=== PATIENT | male | born 1965 | race Caucasian/White ===

== ENCOUNTER 2016-05-27 09:23 | Inpatient (IN) | payer OTHER ==
[2016-05-27 09:35] VITALS: BMI 21.5
--- NOTE | 2016-05-27 12:31 | HP ---
COWS - Scale Resting Pulse: 0= [place] 80 or Below Sweatin= Chills/Flushing Restless Observation: 3= Extraneous Movement Pupil Size: 2= Moderately Dilated Bone or Joint Aches: 4=Acute Joint/Muscle Pain Runny Nose/ Eye Tearin= Runny Nose/Eyes GI Upset > 30mins: 1= Stomach Cramp Tremor Observation: 1= Tremor [place], Not Seen Yawning Observation: 1= 1-2x During Session Anxiety or Irritability: 2=Irritable/Anxious Goose Flesh Skin: 0=Smooth Skin COWS Score: 17 Admission ROS BHS - HPI Chief Complaint: DETOX TX FOR HEROIN DEPENDENCE SEEKING DETOX TX Allergies/Adverse Reactions: Allergies Allergy/AdvReac Type Severity Reaction Status Date / Time No Known Allergies Allergy Verified 05/27/16 09:37 History of Present Illness: 50 Y/O H/MALE WITH A HX OF HEROIN AND COCAINE DEPENDENCE SEEKING DETOX TX. Exam Limitations: No Limitations - Ebola screening Have you traveled outside of the country in the last 21 days: No Have you had contact with anyone from an Ebola affected area: No Have you been sick,other than usual withdrawal symptoms: No Do you have a fever: No - Review of Systems Constitutional: Chills, Night Sweats EENT: reports: Blurred Vision (WEARS GLASSES), Tearing, Nose Congestion, Dental Problems (BILATERAL DENTURES) Respiratory: reports: No Symptoms reported Cardiac: reports: Lightheadedness GI: reports: Constipated, Diarrhea, Nausea, Poor Fluid Intake, Vomiting, Abdominal cramping : reports: No Symptoms Reported Musculoskeletal: reports: Back Pain, Joint Pain, Muscle Pain Integumentary: reports: Bruising (IVD USE SITES ON BOTH ELBOWS) Neuro: reports: No Symptoms reported Endocrine: reports: No Symptoms Reported Hematology: reports: No Symptoms Reported Psychiatric: reports: Orientated x3, Anxious, Depressed Other Systems: Reviewed and Negative Patient History - Patient Medical History Hx Anemia: No Hx Asthma: No Hx Chronic Obstructive Pulmonary Disease (COPD): No Hx Cancer: No Hx Cardiac Disorders: No Hx Congestive Heart Failure: No Hx Hypertension: No Hx Hypercholesterolemia: No Hx Pacemaker: No HX Cerebrovascular Accident: No Hx Seizures: No Hx Dementia: No Hx Diabetes: No Hx Gastrointestinal Disorders: No Hx Liver Disease: No Hx Genitourinary Disorders: No Hx Sexually Transmitted Disorders: No Hx Renal Disease (ESRD): No Hx Thyroid Disease: No Hx Human Immunodeficiency Virus (HIV): Yes (SINCE 1996; ON MEDS) Hx Hepatitis C: Yes (TREATED WITH INTERFERON AND TWO OTHER MEDS.) Hx Depression: Yes (NO CURRENT MEDS) Hx Suicide Attempt: No (DENIES) Hx Bipolar Disorder: No Hx Schizophrenia: No - Patient Surgical History Past Surgical History: Yes Hx Neurologic Surgery: No Hx Cataract Extraction: No Hx Cardiac Surgery: No Hx Lung Surgery: No Hx Breast Surgery: No Hx Breast Biopsy: No Hx Abdominal Surgery: No Hx Appendectomy: No Hx Cholecystectomy: No Hx Genitourinary Surgery: No Hx Section: No Hx Orthopedic Surgery: Yes (S/P ARTHROSCOPIC SURGERY OF RIGHT KNEE) Anesthesia Reaction: No - PPD History Previous Implant?: Yes Documented Results: Negative w/proof Implanted On Prior [facility] Admission?: Yes Date: 03/25/16 Results: 0 mm PPD to be Administered?: No - Reproductive History Patient is a Female of Child Bearing Age (11 -55 yrs old): No (MALE) - Smoking Cessation Smoking history: Current every day smoker Have you smoked in the past 12 months: Yes Aproximately how many cigarettes per day: 5 Cigars Per Day: 0 Hx Chewing Tobacco Use: No Initiated information on smoking cessation: Yes 'Breaking Loose' booklet given: 05/27/16 - Substance & Tx. History Hx Alcohol Use: Yes (OCCASIOALLY) Hx Substance Use: Yes (HEROIN/COCAINE ) Substance Use Type: Cocaine, Heroin Hx Substance Use Treatment: Yes ([facility] [place]) - Substances Abused Heroin Route: Injection Frequency: Daily Amount used: 3 bags Age of first use: 37 Date of Last Use: 05/26/16 Cocaine Route: Inhalation Frequency: 1-3 times last 30 days Amount used: $30 Age of first use: 20 Date of Last Use: 05/25/16 Family Disease History - Family Disease History Family History: Denies Admission Physical Exam BHS - Vital Signs Vital Signs: Vital Signs - 24 hr 05/27/16 09:33 Temperature 97.3 F L Pulse Rate 70 Respiratory 16 Rate Blood Pressure 147/83 - Physical General Appearance: Yes: Moderate Distress, Irritable, Anxious HEENTM: Yes: EOMI, Normocephalic, JOHNNY, Pharynx Normal, Nasal Congestion, Rhinorrhea Respiratory: Yes: Chest Non-Tender, Lungs Clear, Normal Breath Sounds, No Respiratory Distress Neck: Yes: Supple, Trachea in good position Breast: Yes: Breast Exam Deferred Cardiology: Yes: Regular Rhythm, Regular Rate, S1, S2 Abdominal: Yes: Normal Bowel Sounds, Non Tender, Flat, Soft Genitourinary: Yes: Other (N/C) Back: Yes: Within Normal Limits Musculoskeletal: Yes: full range of Motion, Gait Steady Extremities: Yes: Normal Range of Motion, Non-Tender 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, Fully Oriented, Alert Integumentary: Yes: Dry, Warm, Track [place] (BOTH ELBOWS--NO SWELLING OR DRAINAGE ) Lymphatic: Yes: Within Normal Limits - Diagnostic (1) Anxiety and depression Current Visit: Yes Status: Chronic (2) HIV (human immunodeficiency virus infection) Current Visit: Yes Status: Chronic (3) Low back pain Current Visit: Yes Status: Chronic Qualifiers: Chronicity: chronic (4) Opioid dependence with withdrawal Current Visit: Yes Status: Acute (5) History of hepatitis C Current Visit: Yes Status: Suspected (6) Cocaine abuse Current Visit: Yes Status: Acute Cleared for Admission [facility] - Detox or Rehab [facility] Level of Care: Medically Managed Detox Regimen/Protocol: Methadone [facility] Breath Alcohol Content Breath Alcohol Content: 0 Urine Drug Screen - Results Drug Screen Negative: No Urine Drug Screen Results: CA-Cocaine, OPI-Opiates
[2016-05-27] MEDS ORDERED: P-EPHED 60MG/TRIPROLIDI 2.5MG TABLET PO PRN (12:49)
[2016-05-27] MEDS ORDERED: LOPERAMIDE HCL 2 MG CAPSULE PO PRN (12:49)
[2016-05-27] MEDS ORDERED: ACETAMINOPHEN 325 MG TABLET (FP) PO PRN (12:49)
[2016-05-27] MEDS ORDERED: MAGNESIUM HYDROX 2400MG/30ML ORAL SUSPENSION 30 ML CUP PO PRN (12:49)
[2016-05-27] MEDS ORDERED: MAG HYDROX/AL HYDROX/SIMETH 30 ML UNIT-DOSE CUP PO PRN (12:49)
[2016-05-27] MEDS ORDERED: MENTHOL/PHENOL 1 EACH UD MM PRN (12:49)
[2016-05-27] MEDS ORDERED: NICOTINE POLACRILEX 2 MG GUM BUC PRN (12:49)
[2016-05-27] MEDS ORDERED: MAGNESIUM CITRATE 300 ML BOTTLE PO PRN (12:49)
[2016-05-27] MEDS ORDERED: guaiFENesin/D-METHORPHAN HB 10 ML UNIT-DOSE CUPS PO PRN (12:49)
[2016-05-27] MEDS ORDERED: IBUPROFEN 400 MG TABLET (FP) PO PRN (12:49)
[2016-05-27] MEDS ORDERED: diphenhydrAMINE HCL 50 MG CAPSULE PO PRN (12:49)
[2016-05-27] MEDS ORDERED: hydrOXYzine PAMOATE 25 MG CAPSULE (FP) PO PRN (12:49)
[2016-05-27] MEDS ORDERED: METHADONE HCL 10 MG TABLET (FOR DETOX USE ONLY) PO ONE ×2 (13:05→23:00)
[2016-05-27] MEDS: diazePAM 5 MG TABLET PO PRN ×3 (13:22→22:36)
[2016-05-27] MEDS: NICOTINE 14 MG/24 HOURS TOPICAL PATCH TD SCH (13:23)
--- NOTE | 2016-05-27 15:04 | EKG ---
Test Reason : Blood Pressure : / mmHG Vent. Rate : 065 BPM Atrial Rate : 065 BPM P-R Int : 150 ms QRS Dur : 092 ms QT Int : 398 ms P-R-T Axes : 066 041 043 degrees QTc Int : 413 ms NORMAL SINUS RHYTHM POSSIBLE LEFT ATRIAL ENLARGEMENT BORDERLINE ECG NO PREVIOUS ECGS AVAILABLE Confirmed by TOBI AGUILERA, KARLOS ([id number]) on 05/27/2016 3:04:11 PM Referred By: Confirmed By:KARLOS BRITTON MD
[2016-05-27 16:57] LABS: URINE APPEARANCE CLEAR; URINE BILIRUBIN NEGATIVE (NEGATIVE); URINE BLOOD NEGATIVE (NEGATIVE); URINE COLOR YELLOW; URINE GLUCOSE (UA) NEGATIVE (NEGATIVE); URINE KETONE NEGATIVE (NEGATIVE); URINE LEUK ESTERASE NEGATIVE (NEGATIVE); URINE NITRITE NEGATIVE (NEGATIVE); URINE PROTEIN NEGATIVE (NEGATIVE); URINE UROBILINOGEN NEGATIVE E.U./dl (0.2-1.0)
[2016-05-27] MEDS: THIAMINE HCL 100 MG TABLET (FP) PO SCH (22:35)
[2016-05-28] MEDS: diazePAM 5 MG TABLET PO PRN ×3 (05:45→22:26)
[2016-05-28 09:37] LABS: MCH 32.1 pg (25.7-33.7); MCHC 33.3 g/dl (32.0-35.9); MEAN CELL VOLUME 96.4 fl (80-96); MEAN PLT VOLUME 10.4 fl (7.5-11.1); PLATELET COUNT 145 K/MM3 (134-434); RDW 12.9 % (11.9-15.9); WHITE BLOOD COUNT 4.2 K/mm3 (4.0-10.0)
[2016-05-28] MEDS ORDERED: METHADONE HCL 10 MG TABLET (FOR DETOX USE ONLY) PO ONE (10:00)
[2016-05-28] MEDS: NICOTINE 14 MG/24 HOURS TOPICAL PATCH TD SCH (10:42)
[2016-05-28] MEDS: PRENATAL VITAMINS W/ FOLIC ACID TABLET (FP) PO SCH (10:42)
[2016-05-28 10:50] LABS: ALBUMIN 4.3 g/dl (3.4-5.0); ALK PHOS 124 U/L (45-117); ANION GAP 10 (8-16); BILIRUBIN,TOTAL 0.4 mg/dL (0.2-1.0); CO2 26 mmol/L (21-32); CREATININE 1.2 mg/dL (0.7-1.3); GLUCOSE,RANDOM 93 mg/dL (74-106); SGOT/AST 15 U/L (15-37); SGPT/ALT 28 U/L (12-78); TOT PROT 7.7 g/dl (6.4-8.2)
--- NOTE | 2016-05-28 11:05 | PN ---
BHS COWS - Scale Resting Pulse: 0= [place] 80 or Below Sweatin=Flushed/Facial Moisture Restless Observation: 1= Difficult to Sit Still Pupil Size: 0= Normal to Room Light Bone or Joint Aches: 1= Mild Discomfort Runny Nose/ Eye Tearin= Runny Nose/Eyes GI Upset > 30mins: 2= Nausea/Diarrhea Tremor Observation of Outstretched Hands: 2= Slight Tremor Visible Yawning Observation: 1= 1-2x During Session Anxiety or Irritability: 2=Irritable/Anxious Goose Flesh Skin: 0=Smooth Skin COWS Score: 13 BHS Progress Note (SOAP) Subjective: Anxiety,tremors,sweating,interrupted sleep,restless Objective: 05/28/16 11:03 Vital Signs - 8 hr 05/28/16 05/28/16 05/28/16 03:30 06:32 10:36 Temperature 96.1 F L 95.4 F L Pulse Rate 62 68 Respiratory 18 18 18 Rate Blood Pressure 131/87 116/74 Laboratory Last Values WBC 4.2 K/mm3 (4.0-10.0) 05/28/16 07:47 RBC 4.36 M/mm3 (4.00-5.60) 05/28/16 07:47 Hgb 14.0 GM/dL (11.7-16.9) 05/28/16 07:47 Hct 42.1 % (35.4-49) 05/28/16 07:47 MCV 96.4 fl (80-96) H 05/28/16 07:47 MCHC 33.3 g/dl (32.0-35.9) 05/28/16 07:47 RDW 12.9 % (11.9-15.9) 05/28/16 07:47 Plt Count 145 K/MM3 (134-434) 05/28/16 07:47 MPV 10.4 fl (7.5-11.1) 05/28/16 07:47 Sodium 143 mmol/L (136-145) 05/28/16 07:47 Potassium 4.1 mmol/L (3.5-5.1) 05/28/16 07:47 Chloride 107 mmol/L (98-107) 05/28/16 07:47 Carbon Dioxide 26 mmol/L (21-32) 05/28/16 07:47 Anion Gap 10 (8-16) 05/28/16 07:47 BUN 20 mg/dL (7-18) H D 05/28/16 07:47 Creatinine 1.2 mg/dL (0.7-1.3) 05/28/16 07:47 Creat Clearance w eGFR > 60 (>60) 05/28/16 07:47 Random Glucose 93 mg/dL (74-106) D 05/28/16 07:47 Calcium 9.0 mg/dL (8.5-10.1) 05/28/16 07:47 Total Bilirubin 0.4 mg/dL (0.2-1.0) D 05/28/16 07:47 AST 15 U/L (15-37) D 05/28/16 07:47 ALT 28 U/L (12-78) D 05/28/16 07:47 Alkaline Phosphatase 124 U/L (45-117) H 05/28/16 07:47 Total Protein 7.7 g/dl (6.4-8.2) 05/28/16 07:47 Albumin 4.3 g/dl (3.4-5.0) 05/28/16 07:47 Urine Color Yellow 05/27/16 13:00 Urine Appearance Clear 05/27/16 13:00 Urine pH 5.0 (5.0-8.0) D 05/27/16 13:00 Ur Specific [place] 1.023 (1.001-1.035) 05/27/16 13:00 Urine Protein Negative (NEGATIVE) 05/27/16 13:00 Urine Glucose (UA) Negative (NEGATIVE) 05/27/16 13:00 Urine Ketones Negative (NEGATIVE) 05/27/16 13:00 Urine Blood Negative (NEGATIVE) 05/27/16 13:00 Urine Nitrite Negative (NEGATIVE) 05/27/16 13:00 Urine Bilirubin Negative (NEGATIVE) 05/27/16 13:00 Urine Urobilinogen Negative E.U./dl (0.2-1.0) 05/27/16 13:00 Ur Leukocyte Esterase Negative (NEGATIVE) 05/27/16 13:00 RPR Titer Nonreactive (NONREACTIVE) 05/28/16 07:47 Hepatitis C Antibody >11.0 s/co ratio (0.0-0.9) H 05/27/16 12:00 labs noted,pt. was previously treated for Hep C Assessment: 05/28/16 11:05 Withdrawal sx. Plan: Continue detox
--- NOTE | 2016-05-28 13:42 | CONSULT ---
[facility] Psychiatric Consult - Data Date of interview: 05/28/16 Admission source: [facility] Identifying data: Readmission to [facility] for this 50 y/o male seeking detox treatment on for heroin and cocaine dependence.Patient is ,a father of six,domiciled,unemployed and supported on Public Assistance. Substance Abuse History: - Smoking Cessation. Smoking history: Current every day smoker. Have you smoked in the past 12 months: Yes. Aproximately how many cigarettes per day: 5. Cigars Per Day: 0. Hx Chewing Tobacco Use: No. Initiated information on smoking cessation: Yes. 'Breaking Loose' booklet given : 05/27/16. - Substance & Tx. History. Hx Alcohol Use: Yes (OCCASIOALLY). Hx Substance Use: Yes (HEROIN/COCAINE ). Substance Use Type: Cocaine, Heroin. Hx Substance Use Treatment: Yes ([facility]). - Substances Abused. Heroin. Route: Injection. Frequency: Daily. Amount used: 3 bags. Age of first use: 37. Date of Last Use: 05/26/16. Cocaine. Route: Inhalation. Frequency: 1- 3 times last 30 days. Amount used: $30. Age of first use: 20. Date of Last Use: 05/25/16. Confirmed by the patient in this interview. Medical History: HIV infection since 1996 (on ART drugs),low back pain, hepatitis C and a history of arhroscopic surgery on right knee. Psychiatric History: Patient denies history of psychiatric hospitalizations. Physical/Sexual Abuse/Trauma History: Patient denies. Additional Comment: Urine Drug Screen Results: CA-Cocaine, OPI-Opiates.Noted. Mental Status Exam - Mental Status Exam Alert and Oriented to: Time, Place, Person Cognitive Function: Good Patient Appearance: Well Groomed Mood: Hopeful, Euthymic Affect: Appropriate, Normal Range Patient Behavior: Appropriate, Cooperative Speech Pattern: Clear, Appropriate Voice Loudness: Normal Thought Process: Goal Oriented Thought Disorder: Not Present Hallucinations: Denies Suicidal Ideation: Denies Homicidal Ideation: Denies Insight/Judgement: Poor Sleep: Poorly, Difficulty falling asleep Appetite: Good Muscle strength/Tone: Normal Gait/Station: Normal Psychiatric Findings - Problem List ([place] 1, 2,3) (1) Opioid dependence with withdrawal Current Visit: Yes Status: Acute (2) Cocaine dependence Current Visit: Yes Status: Acute (3) Nicotine dependence Current Visit: Yes Status: Acute (4) Drug-induced mood disorder Current Visit: Yes Status: Suspected (5) HIV (human immunodeficiency virus infection) Current Visit: Yes Status: Chronic (6) Low back pain Current Visit: Yes Status: Chronic Qualifiers: Chronicity: chronic (7) History of hepatitis C Current Visit: Yes Status: Chronic - Initial Treatment Plan Initial Treatment Plan: Psychoeducation.Detoxification.Zolpidem 5 mg po hs prn.Patient made aware of the risk of parasomnias.He agrees with this plan of care.Observation.
[2016-05-28] MEDS: ZOLPIDEM TARTRATE 5 MG TABLET PO PRN (22:26)
[2016-05-28] MEDS: THIAMINE HCL 100 MG TABLET (FP) PO SCH (22:26)
[2016-05-29] MEDS ORDERED: METHADONE HCL 5 MG TABLET (FOR DETOX USE ONLY) PO ONE (10:00)
[2016-05-29] MEDS: diazePAM 5 MG TABLET PO PRN ×3 (10:23→19:50)
[2016-05-29] MEDS: NICOTINE 14 MG/24 HOURS TOPICAL PATCH TD SCH (10:23)
[2016-05-29] MEDS: PRENATAL VITAMINS W/ FOLIC ACID TABLET (FP) PO SCH (10:23)
--- NOTE | 2016-05-29 11:34 | PN ---
S COWS - Scale Resting Pulse: 0= [place] 80 or Below Sweatin= Chills/Flushing Restless Observation: 1= Difficult to Sit Still Pupil Size: 1= Pupils >than Normal Bone or Joint Aches: 2= Severe Diffuse Aches Runny Nose/ Eye Tearin= Runny Nose/Eyes GI Upset > 30mins: 2= Nausea/Diarrhea Tremor Observation of Outstretched Hands: 1= Tremor [place], Not Seen Yawning Observation: 1= 1-2x During Session Anxiety or Irritability: 2=Irritable/Anxious Goose Flesh Skin: 3=Piloerection COWS Score: 16 S Progress Note (SOAP) Subjective: Interrupted sleep, restlessness, anxiety, body aches Objective: 05/29/16 11:33 Vital Signs Temperature 97.1 F L 05/29/16 09:50 Pulse Rate 78 05/29/16 09:50 Respiratory Rate 18 05/29/16 09:50 Blood Pressure 137/90 05/29/16 09:50 O2 Sat by Pulse Oximetry (%) Lab Results WBC 4.2 K/mm3 (4.0-10.0) 05/28/16 07:47 RBC 4.36 M/mm3 (4.00-5.60) 05/28/16 07:47 Hgb 14.0 GM/dL (11.7-16.9) 05/28/16 07:47 Hct 42.1 % (35.4-49) 05/28/16 07:47 MCV 96.4 fl (80-96) H 05/28/16 07:47 MCHC 33.3 g/dl (32.0-35.9) 05/28/16 07:47 RDW 12.9 % (11.9-15.9) 05/28/16 07:47 Plt Count 145 K/MM3 (134-434) 05/28/16 07:47 Sodium 143 mmol/L (136-145) 05/28/16 07:47 Potassium 4.1 mmol/L (3.5-5.1) 05/28/16 07:47 Chloride 107 mmol/L (98-107) 05/28/16 07:47 Carbon Dioxide 26 mmol/L (21-32) 05/28/16 07:47 Anion Gap 10 (8-16) 05/28/16 07:47 BUN 20 mg/dL (7-18) H D 05/28/16 07:47 Creatinine 1.2 mg/dL (0.7-1.3) 05/28/16 07:47 Random Glucose 93 mg/dL (74-106) D 05/28/16 07:47 Calcium 9.0 mg/dL (8.5-10.1) 05/28/16 07:47 labs noted Assessment: Withdrawal Symptoms Plan: Continue Detox
[2016-05-29] MEDS: ZOLPIDEM TARTRATE 5 MG TABLET PO PRN (22:16)
[2016-05-29] MEDS: THIAMINE HCL 100 MG TABLET (FP) PO SCH (22:16)
[2016-05-30] MEDS: diazePAM 5 MG TABLET PO PRN ×2 (06:27→10:23)
[2016-05-30] MEDS ORDERED: METHADONE HCL 5 MG TABLET (FOR DETOX USE ONLY) PO ONE (10:00)
[2016-05-30] MEDS: PRENATAL VITAMINS W/ FOLIC ACID TABLET (FP) PO SCH (10:23)
[2016-05-30] MEDS: NICOTINE 14 MG/24 HOURS TOPICAL PATCH TD SCH (10:24)
--- NOTE | 2016-05-30 15:19 | PN ---
BHS Progress Note (SOAP) Subjective: Anxious, sweating, nausea, interrupted sleep Objective: 05/30/16 15:16 Last Vital Signs Temp Pulse Resp BP Pulse Ox 98.1 F 82 18 124/81 05/30/16 13:22 05/30/16 13:22 05/30/16 13:22 05/30/16 13:22 Laboratory Tests 05/27/16 05/27/16 05/28/16 12:00 13:00 07:47 WBC 4.2 RBC 4.36 Hgb 14.0 Hct 42.1 MCV 96.4 H MCHC 33.3 RDW 12.9 Plt Count 145 MPV 10.4 Sodium Potassium Chloride Carbon Dioxide Anion Gap BUN Creatinine Creat Clearance w eGFR Random Glucose Calcium Total Bilirubin AST ALT Alkaline Phosphatase Total Protein Albumin Urine Color Yellow Urine Appearance Clear Urine pH 5.0 D Ur Specific [place] 1.023 Urine Protein Negative Urine Glucose (UA) Negative Urine Ketones Negative Urine Blood Negative Urine Nitrite Negative Urine Bilirubin Negative Urine Urobilinogen Negative Ur Leukocyte Esterase Negative RPR Titer Hepatitis C Antibody >11.0 H 05/28/16 05/28/16 07:47 07:47 WBC RBC Hgb Hct MCV MCHC RDW Plt Count MPV Sodium 143 Potassium 4.1 Chloride 107 Carbon Dioxide 26 Anion Gap 10 BUN 20 H D Creatinine 1.2 Creat Clearance w eGFR > 60 Random Glucose 93 D Calcium 9.0 Total Bilirubin 0.4 D AST 15 D ALT 28 D Alkaline Phosphatase 124 H Total Protein 7.7 Albumin 4.3 Urine Color Urine Appearance Urine pH Ur Specific [place] Urine Protein Urine Glucose (UA) Urine Ketones Urine Blood Urine Nitrite Urine Bilirubin Urine Urobilinogen Ur Leukocyte Esterase RPR Titer Nonreactive Hepatitis C Antibody Labs noted Assessment: 05/30/16 15:17 Withdrawal symptoms Plan: Continue detox
[2016-05-30] MEDS: ZOLPIDEM TARTRATE 5 MG TABLET PO PRN (22:16)
[2016-05-30] MEDS: THIAMINE HCL 100 MG TABLET (FP) PO SCH (22:16)
[2016-05-31] MEDS ORDERED: METHADONE HCL 10 MG TABLET (FOR DETOX USE ONLY) PO ONE (10:00)
[2016-05-31] MEDS: NICOTINE 14 MG/24 HOURS TOPICAL PATCH TD SCH (10:23)
[2016-05-31] MEDS: PRENATAL VITAMINS W/ FOLIC ACID TABLET (FP) PO SCH (10:23)
--- NOTE | 2016-05-31 11:33 | PN ---
BHS Progress Note (SOAP) Subjective: Sweating,interrupted sleep,restless Objective: 05/31/16 11:32 Vital Signs - 8 hr 05/31/16 05/31/16 06:05 09:44 Temperature 96.4 F L 96.2 F L Pulse Rate 65 83 Respiratory 18 18 Rate Blood Pressure 121/77 126/84 Laboratory Tests 05/27/16 05/27/16 05/28/16 12:00 13:00 07:47 WBC 4.2 RBC 4.36 Hgb 14.0 Hct 42.1 MCV 96.4 H MCHC 33.3 RDW 12.9 Plt Count 145 MPV 10.4 Sodium Potassium Chloride Carbon Dioxide Anion Gap BUN Creatinine Creat Clearance w eGFR Random Glucose Calcium Total Bilirubin AST ALT Alkaline Phosphatase Total Protein Albumin Urine Color Yellow Urine Appearance Clear Urine pH 5.0 D Ur Specific [place] 1.023 Urine Protein Negative Urine Glucose (UA) Negative Urine Ketones Negative Urine Blood Negative Urine Nitrite Negative Urine Bilirubin Negative Urine Urobilinogen Negative Ur Leukocyte Esterase Negative RPR Titer Hepatitis C Antibody >11.0 H 05/28/16 05/28/16 07:47 07:47 WBC RBC Hgb Hct MCV MCHC RDW Plt Count MPV Sodium 143 Potassium 4.1 Chloride 107 Carbon Dioxide 26 Anion Gap 10 BUN 20 H D Creatinine 1.2 Creat Clearance w eGFR > 60 Random Glucose 93 D Calcium 9.0 Total Bilirubin 0.4 D AST 15 D ALT 28 D Alkaline Phosphatase 124 H Total Protein 7.7 Albumin 4.3 Urine Color Urine Appearance Urine pH Ur Specific [place] Urine Protein Urine Glucose (UA) Urine Ketones Urine Blood Urine Nitrite Urine Bilirubin Urine Urobilinogen Ur Leukocyte Esterase RPR Titer Nonreactive Hepatitis C Antibody labs noted Assessment: 05/31/16 11:32 Withdrawal sx. Plan: Continue detox
[2016-05-31] MEDS: THIAMINE HCL 100 MG TABLET (FP) PO SCH (22:18)
[2016-06-01] MEDS ORDERED: METHADONE HCL 5 MG TABLET (FOR DETOX USE ONLY) PO ONE (06:00)
[2016-06-01 06:06] VITALS: BP 116/79; PULSE 72; TEMP 96.3
[2016-06-01] MEDS: PRENATAL VITAMINS W/ FOLIC ACID TABLET (FP) PO SCH (09:05)
[2016-06-01] MEDS: NICOTINE 14 MG/24 HOURS TOPICAL PATCH TD SCH (09:09)
--- NOTE | 2016-06-01 09:55 | DS ---
[facility] Detox Discharge Summary Admission Date: 05/27/16 Discharge Date: 06/01/16 - History Present History: Cocaine Dependence, Opioid Dependence Pertinent Past History: HIV Hep C - Physical Exam Results Vital Signs: Vital Signs Temperature 96.3 F L 06/01/16 06:06 Pulse Rate 72 06/01/16 06:06 Respiratory Rate 16 06/01/16 06:06 Blood Pressure 116/79 06/01/16 06:06 O2 Sat by Pulse Oximetry (%) Pertinent Admission Physical Exam Findings: Withdrawal Sx. Laboratory Last Values WBC 4.2 K/mm3 (4.0-10.0) 05/28/16 07:47 RBC 4.36 M/mm3 (4.00-5.60) 05/28/16 07:47 Hgb 14.0 GM/dL (11.7-16.9) 05/28/16 07:47 Hct 42.1 % (35.4-49) 05/28/16 07:47 MCV 96.4 fl (80-96) H 05/28/16 07:47 MCHC 33.3 g/dl (32.0-35.9) 05/28/16 07:47 RDW 12.9 % (11.9-15.9) 05/28/16 07:47 Plt Count 145 K/MM3 (134-434) 05/28/16 07:47 MPV 10.4 fl (7.5-11.1) 05/28/16 07:47 Sodium 143 mmol/L (136-145) 05/28/16 07:47 Potassium 4.1 mmol/L (3.5-5.1) 05/28/16 07:47 Chloride 107 mmol/L (98-107) 05/28/16 07:47 Carbon Dioxide 26 mmol/L (21-32) 05/28/16 07:47 Anion Gap 10 (8-16) 05/28/16 07:47 BUN 20 mg/dL (7-18) H D 05/28/16 07:47 Creatinine 1.2 mg/dL (0.7-1.3) 05/28/16 07:47 Creat Clearance w eGFR > 60 (>60) 05/28/16 07:47 Random Glucose 93 mg/dL (74-106) D 05/28/16 07:47 Calcium 9.0 mg/dL (8.5-10.1) 05/28/16 07:47 Total Bilirubin 0.4 mg/dL (0.2-1.0) D 05/28/16 07:47 AST 15 U/L (15-37) D 05/28/16 07:47 ALT 28 U/L (12-78) D 05/28/16 07:47 Alkaline Phosphatase 124 U/L (45-117) H 05/28/16 07:47 Total Protein 7.7 g/dl (6.4-8.2) 05/28/16 07:47 Albumin 4.3 g/dl (3.4-5.0) 05/28/16 07:47 Urine Color Yellow 05/27/16 13:00 Urine Appearance Clear 05/27/16 13:00 Urine pH 5.0 (5.0-8.0) D 05/27/16 13:00 Ur Specific [place] 1.023 (1.001-1.035) 05/27/16 13:00 Urine Protein Negative (NEGATIVE) 05/27/16 13:00 Urine Glucose (UA) Negative (NEGATIVE) 05/27/16 13:00 Urine Ketones Negative (NEGATIVE) 05/27/16 13:00 Urine Blood Negative (NEGATIVE) 05/27/16 13:00 Urine Nitrite Negative (NEGATIVE) 05/27/16 13:00 Urine Bilirubin Negative (NEGATIVE) 05/27/16 13:00 Urine Urobilinogen Negative E.U./dl (0.2-1.0) 05/27/16 13:00 Ur Leukocyte Esterase Negative (NEGATIVE) 05/27/16 13:00 RPR Titer Nonreactive (NONREACTIVE) 05/28/16 07:47 Hepatitis C Antibody >11.0 s/co ratio (0.0-0.9) H 05/27/16 12:00 labs noted,has hx of hep c - Treatment Hospital Course: Detox Protocol Followed, Detoxed Safely, Responded well, Discharged Condition Good, Rehab Referral Accepted - Medication Discharge Medications: Ambulatory Orders Emtricitab/Rilpiviri/Tenof Ala [Odefsey Tablet] 1 each PO DAILY 05/27/16 - Diagnosis (1) Cocaine dependence Status: Acute Qualifiers: Substance use status: uncomplicated Qualified Code(s): F14.20 - Cocaine dependence, uncomplicated (2) Nicotine dependence Status: Acute Qualifiers: Nicotine product type: cigarettes Substance use status: uncomplicated Qualified Code(s): F17.210 - Nicotine dependence, cigarettes, uncomplicated (3) Opioid dependence with withdrawal Status: Acute (4) HIV (human immunodeficiency virus infection) Status: Chronic (5) History of hepatitis C Status: Chronic (6) Drug-induced mood disorder Status: Suspected - AMA Did Patient Leave Against Medical Advice: No
== END 2016-06-01 09:09 | disposition home or self-care (01) | DRG 773 ==
LOC: YASAS 09:23 → Y3N 12:48
PROVIDERS: ADMIT Internal Medicine; ATTEND Internal Medicine
PROC: HZ2ZZZZ Detoxification Services for Substance Abuse Treatment (ICD-10-PCS; principal; 2016-05-27)
DX: F11.23 Opioid dependence with withdrawal (principal); F14.20 Cocaine dependence, uncomplicated; F17.210 Nicotine dependence, cigarettes, uncomplicated; F19.24 Other psychoactive substance dependence with psychoactive substance-induced mood disorder; Z21 Asymptomatic human immunodeficiency virus [HIV] infection status; B18.2 Chronic viral hepatitis C; M54.5 Low back pain
CPT/HCPCS: 36415; 80053; 81003; 85027; 86593; 87522; 93005; 93010

== ENCOUNTER 2016-08-02 09:13 | Inpatient (IN) | payer OTHER ==
[2016-08-02 10:36] VITALS: BMI 20.9
--- NOTE | 2016-08-02 11:30 | HP ---
COWS - Scale Resting Pulse: 0= MA 80 or Below Sweatin= Chills/Flushing Restless Observation: 3= Extraneous Movement Pupil Size: 2= Moderately Dilated Bone or Joint Aches: 1= Mild Discomfort Runny Nose/ Eye Tearin= Nasal Congestion GI Upset > 30mins: 2= Nausea/Diarrhea Tremor Observation: 2= Slight Tremor Visible Yawning Observation: 2= >3x During Session Anxiety or Irritability: 1=Feels Anxious/Irritable Goose Flesh Skin: 0=Smooth Skin COWS Score: 15 CIWA Score - CIWA Score Nausea/Vomitin (DIARRHEA) Muscle Tremors: 4-Moderate,w/Arms Extend Anxiety: 4-Mod. Anxious/Guarded Agitation: 4-Moderately Restless Paroxysmal Sweats: 1-Minimal Palms Moist Orientation: 0-Oriented Tacttile Disturbances: 3-Moderate Itch/Numb/Burn Auditory Disturbances: 0-None Visual Disturbances: 0-None Headache: 0-None Present CIWA-Ar Total Score: 21 Admission ROS S - HPI Chief Complaint: DETOX TX FOR HEROIN AND ALCOHOL DEPENDENCE Allergies/Adverse Reactions: Allergies Allergy/AdvReac Type Severity Reaction Status Date / Time No Known Allergies Allergy Verified 08/02/16 10:32 History of Present Illness: 51 Y/O H/M WITH A HX OF HEROIN,ALCOHOL, COCAINE AND MARIJUANA DEPENDENCE SEEKING DETOX [place] Exam Limitations: No Limitations - Ebola screening Have you traveled outside of the country in the last 21 days: No Have you had contact with anyone from an Ebola affected area: No Have you been sick,other than usual withdrawal symptoms: No Do you have a fever: No - Review of Systems Constitutional: Chills, Loss of Appetite, Night Sweats, Changes in sleep, Unintentional Wgt. Loss EENT: reports: Blurred Vision, Tearing, Nose Congestion, Dental Problems ( DENTURES,BOTH.) Respiratory: reports: No Symptoms reported Cardiac: reports: Lightheadedness GI: reports: Constipated, Diarrhea, Nausea, Poor Appetite, Poor Fluid Intake, Vomiting : reports: No Symptoms Reported Musculoskeletal: reports: Back Pain, Joint Pain, Muscle Pain Integumentary: reports: Bruising (IVD INJ SITES) Neuro: reports: Headache, Tremors, Dizziness Endocrine: reports: No Symptoms Reported Hematology: reports: No Symptoms Reported Psychiatric: reports: Orientated x3, Agitated, Anxious, Depressed Other Systems: Reviewed and Negative Patient History - Patient Medical History Hx Anemia: No Hx Asthma: No Hx Chronic Obstructive Pulmonary Disease (COPD): No Hx Cancer: No Hx Cardiac Disorders: No Hx Congestive Heart Failure: No Hx Hypertension: No Hx Hypercholesterolemia: No Hx Pacemaker: No HX Cerebrovascular Accident: No Hx Seizures: No Hx Dementia: No Hx Diabetes: No Hx Gastrointestinal Disorders: No Hx Liver Disease: No Hx Genitourinary Disorders: No Hx Sexually Transmitted Disorders: No Hx Renal Disease (ESRD): No Hx Thyroid Disease: No Hx Human Immunodeficiency Virus (HIV): Yes (SINCE 1996; ON MEDS) Hx Hepatitis C: Yes (TREATED WITH INTERFERON AND TWO OTHER MEDS.) Hx Depression: Yes (NO CURRENT MED) Hx Suicide Attempt: No (DENIES) Hx Bipolar Disorder: No Hx Schizophrenia: No - Patient Surgical History Past Surgical History: Yes Hx Neurologic Surgery: No Hx Cataract Extraction: No Hx Cardiac Surgery: No Hx Lung Surgery: No Hx Breast Surgery: No Hx Breast Biopsy: No Hx Abdominal Surgery: No Hx Appendectomy: No Hx Cholecystectomy: No Hx Genitourinary Surgery: No Hx Section: No Hx Orthopedic Surgery: Yes (S/P ARTHROSCOPIC SURGERY OF RIGHT KNEE) Anesthesia Reaction: No - PPD History Previous Implant?: Yes Documented Results: Negative w/proof Implanted On Prior [facility] Admission?: Yes Date: 03/25/16 Results: 0 mm PPD to be Administered?: No - Reproductive History Patient is a Female of Child Bearing Age (11 -55 yrs old): No (MALE) - Smoking Cessation Smoking history: Current every day smoker Have you smoked in the past 12 months: Yes Aproximately how many cigarettes per day: 10 Cigars Per Day: 0 Hx Chewing Tobacco Use: No Initiated information on smoking cessation: Yes 'Breaking Loose' booklet given: 08/02/16 - Substance & Tx. History Hx Alcohol Use: Yes (BEER/RUM) Hx Substance Use: Yes (HEROIN/COCAINE/MARIJUANA) Substance Use Type: Alcohol, Cocaine, Heroin, Marijuana Hx Substance Use Treatment: Yes ([facility]) - Substances Abused Heroin Route: Injection Frequency: Daily Amount used: 5-6 bags Age of first use: 37 Date of Last Use: 08/30/15 Cocaine Route: Injection Frequency: Daily Amount used: $30-40 Age of first use: 20 Date of Last Use: 08/27/16 Alcohol-beer/rum/vodka Route: Oral Frequency: Daily Amount used: 2 pts./1 pt Age of first use: 15 Date of Last Use: 08/02/15 Marijuana Route: Smoking Frequency: Daily Amount used: $5-10 Age of first use: 15 Date of Last Use: 08/01/16 Family Disease History - Family Disease History Family Disease History: Heart Disease: Father ([place]-) Admission Physical Exam S - Vital Signs Vital Signs: Vital Signs - 24 hr 08/02/16 10:32 Temperature 97 F L Pulse Rate 75 Respiratory 20 Rate Blood Pressure 121/84 - Physical General Appearance: Yes: Moderate Distress, Thin, Irritable, Anxious HEENTM: Yes: EOMI, Normocephalic, JOHNNY, Pharynx Normal, Nasal Congestion, Rhinorrhea Respiratory: Yes: Chest Non-Tender, Lungs Clear, Normal Breath Sounds, No Respiratory Distress Neck: Yes: Supple, Trachea in good position Breast: Yes: Breast Exam Deferred Cardiology: Yes: Regular Rhythm, Regular Rate, S1, S2 Abdominal: Yes: Normal Bowel Sounds, Non Tender, Flat, Soft Genitourinary: Yes: Other (N/C) Back: Yes: Within Normal Limits Musculoskeletal: Yes: full range of Motion, Gait Steady Extremities: Yes: Normal Range of Motion, Non-Tender Neurological: Yes: supervisor files II-XII NML intact, Fully Oriented, Alert Integumentary: Yes: Dry, Warm, Track [place] (BOTH ELBOWS--RECENT IVD INJ SITES- NO SWELLING) Lymphatic: Yes: Within Normal Limits - Diagnostic (1) Cocaine dependence Current Visit: Yes Status: Acute Qualifiers: Substance use status: uncomplicated Qualified Code(s): F14.20 - Cocaine dependence, uncomplicated (2) Nicotine dependence Current Visit: Yes Status: Acute Qualifiers: Nicotine product type: cigarettes Substance use status: in withdrawal Qualified Code(s): F17.213 - Nicotine dependence, cigarettes, with withdrawal (3) Opioid dependence with withdrawal Current Visit: Yes Status: Acute (4) HIV (human immunodeficiency virus infection) Current Visit: Yes Status: Chronic (5) History of hepatitis C Current Visit: Yes Status: Chronic (6) Low back pain Current Visit: Yes Status: Chronic Qualifiers: Chronicity: chronic (7) Weight loss Current Visit: Yes Status: Chronic (8) Alcohol dependence with uncomplicated withdrawal Current Visit: Yes Status: Acute (9) Cannabis dependence, uncomplicated Current Visit: Yes Status: Acute Cleared for Admission [facility] - Detox or Rehab [facility] Level of Care: Medically Managed Detox Regimen/Protocol: Methadone/Librium [facility] Breath Alcohol Content Breath Alcohol Content: 0 Urine Drug Screen - Results Drug Screen Negative: No Urine Drug Screen Results: THC-Marijuana, CA-Cocaine, OPI-Opiates
[2016-08-02] MEDS ORDERED: P-EPHED 60MG/TRIPROLIDI 2.5MG TABLET PO PRN (11:44)
[2016-08-02] MEDS ORDERED: chlordiazePOXIDE HCL 25 MG CAPSULE PO PRN (11:44)
[2016-08-02] MEDS ORDERED: MAGNESIUM HYDROX 2400MG/30ML ORAL SUSPENSION 30 ML CUP PO PRN (11:44)
[2016-08-02] MEDS ORDERED: LOPERAMIDE HCL 2 MG CAPSULE PO PRN (11:44)
[2016-08-02] MEDS ORDERED: MAGNESIUM CITRATE 300 ML BOTTLE PO PRN (11:44)
[2016-08-02] MEDS ORDERED: NICOTINE POLACRILEX 2 MG GUM BC PRN (11:44)
[2016-08-02] MEDS ORDERED: IBUPROFEN 400 MG TABLET (FP) PO PRN (11:44)
[2016-08-02] MEDS ORDERED: guaiFENesin/D-METHORPHAN HB 10 ML UNIT-DOSE CUPS PO PRN (11:44)
[2016-08-02] MEDS ORDERED: ACETAMINOPHEN 325 MG TABLET (FP) PO PRN (11:44)
[2016-08-02] MEDS ORDERED: MENTHOL/PHENOL 1 EACH UD MM PRN (11:44)
[2016-08-02] MEDS ORDERED: MAG HYDROX/AL HYDROX/SIMETH 30 ML UNIT-DOSE CUP PO PRN (11:44)
[2016-08-02] MEDS ORDERED: hydrOXYzine PAMOATE 25 MG CAPSULE (FP) PO PRN (11:44)
[2016-08-02] MEDS: NICOTINE 14 MG/24 HOURS TOPICAL PATCH TD SCH (13:50)
[2016-08-02] MEDS ORDERED: METHADONE HCL 10 MG TABLET (FOR DETOX USE ONLY) PO ONE ×2 (14:00→23:00)
[2016-08-02] MEDS ORDERED: chlordiazePOXIDE HCL 25 MG CAPSULE PO ONE (14:00)
[2016-08-02 16:56] LABS: URINE APPEARANCE CLEAR; URINE BILIRUBIN NEGATIVE (NEGATIVE); URINE BLOOD NEGATIVE (NEGATIVE); URINE COLOR STRAW; URINE GLUCOSE (UA) NEGATIVE (NEGATIVE); URINE KETONE NEGATIVE (NEGATIVE); URINE LEUK ESTERASE NEGATIVE (NEGATIVE); URINE NITRITE NEGATIVE (NEGATIVE); URINE PROTEIN NEGATIVE (NEGATIVE); URINE UROBILINOGEN NEGATIVE E.U./dl (0.2-1.0)
--- NOTE | 2016-08-02 17:03 | CONSULT ---
[facility] Psychiatric Consult - Data Date of interview: 08/02/16 Admission source: [facility] Identifying data: Another admission to [facility] for this 51 y/o male seeking detox treatment on for heroin,marijuana,alcohol and cocaine dependence.Patient is ,a father of six,domiciled,unemployed and supported on Public Assistance. Substance Abuse History: - Smoking Cessation. Smoking history: Current every day smoker. Have you smoked in the past 12 months: Yes. Aproximately how many cigarettes per day: 10. Cigars Per Day: 0. Hx Chewing Tobacco Use: No. Initiated information on smoking cessation: Yes. 'Breaking Loose' booklet given : 08/02/16. - Substance & Tx. History. Hx Alcohol Use: Yes (BEER/RUM). Hx Substance Use: Yes (HEROIN/COCAINE/MARIJUANA). Substance Use Type: Alcohol, Cocaine, Heroin, Marijuana. Hx Substance Use Treatment: Yes ([facility]-DETOX). - Substances Abused. Heroin. Route: Injection. Frequency: Daily. Amount used: 5-6 bags. Age of first use: 37. Date of Last Use: 08/30/15. Cocaine. Route: Injection. Frequency: Daily. Amount used: $30-40. Age of first use: 20. Date of Last Use: 08/27/16. Alcohol-beer/rum/vodka. Route: Oral. Frequency: Daily. Amount used: 2 pts./1 pt. Age of first use: 15. Date of Last Use: 08/02/15. Marijuana. Route: Smoking. Frequency: Daily. Amount used: $5-10. Age of first use: 15. Date of Last Use: 08/01/16. Confirmed by patient. Medical History: HIV infection since 1996 (on ART drugs),low back pain, hepatitis C and a history of arhroscopic surgery on right knee. Psychiatric History: Patient denies. Physical/Sexual Abuse/Trauma History: Patient denies. Additional Comment: Urine Drug Screen Results: THC-Marijuana, CA-Cocaine, OPI- Opiates.Noted. Mental Status Exam - Mental Status Exam Alert and Oriented to: Time, Place, Person Cognitive Function: Good Patient Appearance: Well Groomed Mood: Hopeful, Euthymic Affect: Appropriate, Normal Range Patient Behavior: Fatigued, Appropriate, Cooperative Speech Pattern: Clear Voice Loudness: Normal Thought Process: Goal Oriented Thought Disorder: Not Present Hallucinations: Denies Suicidal Ideation: Denies Homicidal Ideation: Denies Insight/Judgement: Poor Sleep: Poorly, Difficulty falling asleep Appetite: Good Muscle strength/Tone: Normal Gait/Station: Normal Psychiatric Findings - Problem List ([place] 1, 2,3) (1) Alcohol dependence with uncomplicated withdrawal Current Visit: Yes Status: Acute (2) Cannabis dependence, uncomplicated Current Visit: Yes Status: Acute (3) Cocaine dependence Current Visit: Yes Status: Acute Qualifiers: Substance use status: uncomplicated Qualified Code(s): F14.20 - Cocaine dependence, uncomplicated (4) Opioid dependence with withdrawal Current Visit: Yes Status: Acute (5) Drug-induced mood disorder Current Visit: Yes Status: Suspected (6) Nicotine dependence Current Visit: Yes Status: Acute Qualifiers: Nicotine product type: cigarettes Substance use status: in withdrawal Qualified Code(s): F17.213 - Nicotine dependence, cigarettes, with withdrawal (7) HIV (human immunodeficiency virus infection) Current Visit: Yes Status: Chronic (8) Low back pain Current Visit: Yes Status: Chronic Qualifiers: Chronicity: chronic (9) History of hepatitis C Current Visit: Yes Status: Chronic - Initial Treatment Plan Initial Treatment Plan: Psychoeducation.Detoxification.Insomnia is addressed,at patient's request,with benadryl 50 mg/hs.Side effects/benefits discussed with patient.He agrees with this careplan.Observation.
[2016-08-02] MEDS: chlordiazePOXIDE HCL 25 MG CAPSULE PO SCH ×2 (18:03→22:22)
[2016-08-02] MEDS: THIAMINE HCL 100 MG TABLET (FP) PO SCH (22:22)
[2016-08-02] MEDS: diphenhydrAMINE HCL 50 MG CAPSULE PO PRN (22:23)
[2016-08-03] MEDS: chlordiazePOXIDE HCL 25 MG CAPSULE PO SCH ×4 (05:55→22:13)
[2016-08-03 10:00] LABS: MCHC 33.6 g/dl (32.0-35.9); MEAN CELL VOLUME 95.4 fl (80-96); MEAN PLT VOLUME 10.7 fl (7.5-11.1); PLATELET COUNT 160 K/MM3 (134-434); RDW 13.5 % (11.9-15.9); WHITE BLOOD COUNT 2.2 K/mm3 (4.0-10.0)
[2016-08-03] MEDS ORDERED: METHADONE HCL 10 MG TABLET (FOR DETOX USE ONLY) PO SCH (10:00)
[2016-08-03] MEDS: PRENATAL VITAMINS W/ FOLIC ACID TABLET (FP) PO SCH (10:12)
[2016-08-03] MEDS: NICOTINE 14 MG/24 HOURS TOPICAL PATCH TD SCH (10:13)
--- NOTE | 2016-08-03 10:15 | PN ---
[facility] CIWA - CIWA Score Nausea/Vomitin-No Nausea/No Vomiting Muscle Tremors: 4-Moderate,w/Arms Extend Anxiety: 4-Mod. Anxious/Guarded Agitation: 4-Moderately Restless Paroxysmal Sweats: 1-Minimal Palms Moist Orientation: 0-Oriented Tacttile Disturbances: 3-Moderate Itch/Numb/Burn Auditory Disturbances: 0-None Visual Disturbances: 0-None Headache: 0-None Present CIWA-Ar Total Score: 16 S COWS - Scale Resting Pulse: 0= [place] 80 or Below Sweatin= Chills/Flushing Restless Observation: 3= Extraneous Movement Pupil Size: 2= Moderately Dilated Bone or Joint Aches: 4=Acute Joint/Muscle Pain Runny Nose/ Eye Tearin= Nasal Congestion GI Upset > 30mins: 1= Stomach Cramp Tremor Observation of Outstretched Hands: 2= Slight Tremor Visible Yawning Observation: 2= >3x During Session Anxiety or Irritability: 2=Irritable/Anxious Goose Flesh Skin: 0=Smooth Skin COWS Score: 18 [facility] Progress Note (SOAP) Subjective: ANXIETY,SWEATS,TREMORS,INTERMITTENT SLEEP Objective: 08/03/16 10:14 Vital Signs Temperature 98.1 F 08/03/16 09:53 Pulse Rate 67 08/03/16 09:53 Respiratory Rate 18 08/03/16 09:53 Blood Pressure 119/79 08/03/16 09:53 O2 Sat by Pulse Oximetry (%) Laboratory Last Values WBC 2.2 K/mm3 (4.0-10.0) L D 08/03/16 06:00 RBC 4.61 M/mm3 (4.00-5.60) 08/03/16 06:00 Hgb 14.8 GM/dL (11.7-16.9) 08/03/16 06:00 Hct 44.0 % (35.4-49) 08/03/16 06:00 MCV 95.4 fl (80-96) 08/03/16 06:00 MCHC 33.6 g/dl (32.0-35.9) 08/03/16 06:00 RDW 13.5 % (11.9-15.9) 08/03/16 06:00 Plt Count 160 K/MM3 (134-434) 08/03/16 06:00 MPV 10.7 fl (7.5-11.1) 08/03/16 06:00 Urine Color Straw 08/02/16 14:00 Urine Appearance Clear 08/02/16 14:00 Urine pH 5.0 (5.0-8.0) 08/02/16 14:00 Ur Specific [place] 1.017 (1.001-1.035) 08/02/16 14:00 Urine Protein Negative (NEGATIVE) 08/02/16 14:00 Urine Glucose (UA) Negative (NEGATIVE) 08/02/16 14:00 Urine Ketones Negative (NEGATIVE) 08/02/16 14:00 Urine Blood Negative (NEGATIVE) 08/02/16 14:00 Urine Nitrite Negative (NEGATIVE) 08/02/16 14:00 Urine Bilirubin Negative (NEGATIVE) 08/02/16 14:00 Urine Urobilinogen Negative E.U./dl (0.2-1.0) 08/02/16 14:00 Ur Leukocyte Esterase Negative (NEGATIVE) 08/02/16 14:00 Assessment: 08/03/16 10:14 WITHDRAWAL SX Plan: CONTINUE DETOX
[2016-08-03 10:29] LABS: ALBUMIN 4.4 g/dl (3.4-5.0); ALK PHOS 104 U/L (45-117); ANION GAP 8 (8-16); BILIRUBIN,TOTAL 0.7 mg/dL (0.2-1.0); CALCIUM 9.5 mg/dL (8.5-10.1); CO2 29 mmol/L (21-32); COCKROFT - GAULT 69.74; CREATININE 1.2 mg/dL (0.7-1.3); GLUCOSE,RANDOM 94 mg/dL (74-106); SGOT/AST 15 U/L (15-37); SGPT/ALT 23 U/L (12-78); TOT PROT 8.4 g/dl (6.4-8.2)
[2016-08-03] MEDS: diphenhydrAMINE HCL 50 MG CAPSULE PO PRN (22:13)
[2016-08-03] MEDS: THIAMINE HCL 100 MG TABLET (FP) PO SCH (22:13)
--- NOTE | 2016-08-03 23:08 | EKG ---
Test Reason : Blood Pressure : / mmHG Vent. Rate : 065 BPM Atrial Rate : 065 BPM P-R Int : 130 ms QRS Dur : 090 ms QT Int : 382 ms P-R-T Axes : 032 043 040 degrees QTc Int : 397 ms NORMAL SINUS RHYTHM NORMAL ECG WHEN COMPARED WITH ECG OF 27-MAY-2016 13:30, NO SIGNIFICANT CHANGE WAS FOUND Confirmed by GRETA RIVERA MD ([id number]) on 08/03/2016 11:08:07 PM Referred By: Pollo Hernandez Confirmed By:GRETA RIVERA MD
[2016-08-04] MEDS: chlordiazePOXIDE HCL 25 MG CAPSULE PO SCH ×2 (06:14→10:23)
[2016-08-04] MEDS: NICOTINE 14 MG/24 HOURS TOPICAL PATCH TD SCH (10:23)
[2016-08-04] MEDS: PRENATAL VITAMINS W/ FOLIC ACID TABLET (FP) PO SCH (10:23)
[2016-08-04] MEDS: METHADONE HCL 5 MG TABLET (FOR DETOX USE ONLY) PO SCH (10:23)
--- NOTE | 2016-08-04 10:35 | PN ---
[facility] Progress Note Note: Psychiatry Attending's note : Approached by patient. Issue : insomnia.Mr Gomez is requesting trazodone. Past history of good response to that medication. Benefits of sleep hygiene : discussed with patient. Trazodone 50 mg po hs.Ordered. Patient made aware of potential for priapism. He agrees to take trazodone as prescribed.
--- NOTE | 2016-08-04 10:48 | PN ---
[facility] CIWA - CIWA Score Nausea/Vomitin-No Nausea/No Vomiting Muscle Tremors: 4-Moderate,w/Arms Extend Anxiety: 4-Mod. Anxious/Guarded Agitation: 4-Moderately Restless Paroxysmal Sweats: 1-Minimal Palms Moist Orientation: 0-Oriented Tacttile Disturbances: 3-Moderate Itch/Numb/Burn Auditory Disturbances: 0-None Visual Disturbances: 0-None Headache: 0-None Present CIWA-Ar Total Score: 16 [facility] COWS - Scale Resting Pulse: 0= [place] 80 or Below Sweatin= Chills/Flushing Restless Observation: 3= Extraneous Movement Pupil Size: 2= Moderately Dilated Bone or Joint Aches: 4=Acute Joint/Muscle Pain Runny Nose/ Eye Tearin= Nasal Congestion GI Upset > 30mins: 1= Stomach Cramp Tremor Observation of Outstretched Hands: 1= Tremor [place], Not Seen Yawning Observation: 1= 1-2x During Session Anxiety or Irritability: 1=Feels Anxious/Irritable Goose Flesh Skin: 0=Smooth Skin COWS Score: 15 [facility] Progress Note (SOAP) Subjective: ANXIETY,SWEATS/CHILLS,FATIGUE. Objective: 08/04/16 10:46 Vital Signs Temperature 97.8 F 08/04/16 09:28 Pulse Rate 69 08/04/16 09:28 Respiratory Rate 18 08/04/16 09:28 Blood Pressure 124/77 08/04/16 09:28 O2 Sat by Pulse Oximetry (%) Laboratory Last Values WBC 2.2 K/mm3 (4.0-10.0) L D 08/03/16 06:00 RBC 4.61 M/mm3 (4.00-5.60) 08/03/16 06:00 Hgb 14.8 GM/dL (11.7-16.9) 08/03/16 06:00 Hct 44.0 % (35.4-49) 08/03/16 06:00 MCV 95.4 fl (80-96) 08/03/16 06:00 MCHC 33.6 g/dl (32.0-35.9) 08/03/16 06:00 RDW 13.5 % (11.9-15.9) 08/03/16 06:00 Plt Count 160 K/MM3 (134-434) 08/03/16 06:00 MPV 10.7 fl (7.5-11.1) 08/03/16 06:00 Sodium 142 mmol/L (136-145) 08/03/16 06:00 Potassium 4.4 mmol/L (3.5-5.1) 08/03/16 06:00 Chloride 105 mmol/L (98-107) 08/03/16 06:00 Carbon Dioxide 29 mmol/L (21-32) 08/03/16 06:00 Anion Gap 8 (8-16) 08/03/16 06:00 BUN 17 mg/dL (7-18) 08/03/16 06:00 Creatinine 1.2 mg/dL (0.7-1.3) 08/03/16 06:00 Creat Clearance w eGFR > 60 (>60) 08/03/16 06:00 Random Glucose 94 mg/dL (74-106) 08/03/16 06:00 Calcium 9.5 mg/dL (8.5-10.1) 08/03/16 06:00 Total Bilirubin 0.7 mg/dL (0.2-1.0) D 08/03/16 06:00 AST 15 U/L (15-37) 08/03/16 06:00 ALT 23 U/L (12-78) 08/03/16 06:00 Alkaline Phosphatase 104 U/L (45-117) 08/03/16 06:00 Total Protein 8.4 g/dl (6.4-8.2) H 08/03/16 06:00 Albumin 4.4 g/dl (3.4-5.0) 08/03/16 06:00 Urine Color Straw 08/02/16 14:00 Urine Appearance Clear 08/02/16 14:00 Urine pH 5.0 (5.0-8.0) 08/02/16 14:00 Ur Specific [place] 1.017 (1.001-1.035) 08/02/16 14:00 Urine Protein Negative (NEGATIVE) 08/02/16 14:00 Urine Glucose (UA) Negative (NEGATIVE) 08/02/16 14:00 Urine Ketones Negative (NEGATIVE) 08/02/16 14:00 Urine Blood Negative (NEGATIVE) 08/02/16 14:00 Urine Nitrite Negative (NEGATIVE) 08/02/16 14:00 Urine Bilirubin Negative (NEGATIVE) 08/02/16 14:00 Urine Urobilinogen Negative E.U./dl (0.2-1.0) 08/02/16 14:00 Ur Leukocyte Esterase Negative (NEGATIVE) 08/02/16 14:00 RPR Titer Nonreactive (NONREACTIVE) 08/03/16 06:00 LABS NOTED Assessment: 08/04/16 10:46 Vital Signs Temperature 97.8 F 08/04/16 09:28 Pulse Rate 69 08/04/16 09:28 Respiratory Rate 18 08/04/16 09:28 Blood Pressure 124/77 08/04/16 09:28 O2 Sat by Pulse Oximetry (%) Laboratory Last Values WBC 2.2 K/mm3 (4.0-10.0) L D 08/03/16 06:00 RBC 4.61 M/mm3 (4.00-5.60) 08/03/16 06:00 Hgb 14.8 GM/dL (11.7-16.9) 08/03/16 06:00 Hct 44.0 % (35.4-49) 08/03/16 06:00 MCV 95.4 fl (80-96) 08/03/16 06:00 MCHC 33.6 g/dl (32.0-35.9) 08/03/16 06:00 RDW 13.5 % (11.9-15.9) 08/03/16 06:00 Plt Count 160 K/MM3 (134-434) 08/03/16 06:00 MPV 10.7 fl (7.5-11.1) 08/03/16 06:00 Sodium 142 mmol/L (136-145) 08/03/16 06:00 Potassium 4.4 mmol/L (3.5-5.1) 08/03/16 06:00 Chloride 105 mmol/L (98-107) 08/03/16 06:00 Carbon Dioxide 29 mmol/L (21-32) 08/03/16 06:00 Anion Gap 8 (8-16) 08/03/16 06:00 BUN 17 mg/dL (7-18) 08/03/16 06:00 Creatinine 1.2 mg/dL (0.7-1.3) 08/03/16 06:00 Creat Clearance w eGFR > 60 (>60) 08/03/16 06:00 Random Glucose 94 mg/dL (74-106) 08/03/16 06:00 Calcium 9.5 mg/dL (8.5-10.1) 08/03/16 06:00 Total Bilirubin 0.7 mg/dL (0.2-1.0) D 08/03/16 06:00 AST 15 U/L (15-37) 08/03/16 06:00 ALT 23 U/L (12-78) 08/03/16 06:00 Alkaline Phosphatase 104 U/L (45-117) 08/03/16 06:00 Total Protein 8.4 g/dl (6.4-8.2) H 08/03/16 06:00 Albumin 4.4 g/dl (3.4-5.0) 08/03/16 06:00 Urine Color Straw 08/02/16 14:00 Urine Appearance Clear 08/02/16 14:00 Urine pH 5.0 (5.0-8.0) 08/02/16 14:00 Ur Specific [place] 1.017 (1.001-1.035) 08/02/16 14:00 Urine Protein Negative (NEGATIVE) 08/02/16 14:00 Urine Glucose (UA) Negative (NEGATIVE) 08/02/16 14:00 Urine Ketones Negative (NEGATIVE) 08/02/16 14:00 Urine Blood Negative (NEGATIVE) 08/02/16 14:00 Urine Nitrite Negative (NEGATIVE) 08/02/16 14:00 Urine Bilirubin Negative (NEGATIVE) 08/02/16 14:00 Urine Urobilinogen Negative E.U./dl (0.2-1.0) 08/02/16 14:00 Ur Leukocyte Esterase Negative (NEGATIVE) 08/02/16 14:00 RPR Titer Nonreactive (NONREACTIVE) 08/03/16 06:00 Plan: CONTINUE DETOX
[2016-08-04] MEDS: chlordiazePOXIDE 5 MG CAPSULE PO SCH ×2 (17:16→22:24)
[2016-08-04] MEDS: diphenhydrAMINE HCL 50 MG CAPSULE PO PRN (22:24)
[2016-08-04] MEDS: THIAMINE HCL 100 MG TABLET (FP) PO SCH (22:24)
[2016-08-04] MEDS: traZODone HCL 50 MG TABLET (FP) PO SCH (22:24)
[2016-08-05] MEDS: chlordiazePOXIDE 5 MG CAPSULE PO SCH ×2 (06:12→10:38)
[2016-08-05] MEDS: PRENATAL VITAMINS W/ FOLIC ACID TABLET (FP) PO SCH (10:37)
[2016-08-05] MEDS: NICOTINE 14 MG/24 HOURS TOPICAL PATCH TD SCH (10:37)
[2016-08-05] MEDS: METHADONE HCL 5 MG TABLET (FOR DETOX USE ONLY) PO SCH (10:38)
--- NOTE | 2016-08-05 10:53 | PN ---
[facility] Progress Note (SOAP) Subjective: ANXIETY,SWEATS,FATIGUE. Objective: 08/05/16 10:52 Vital Signs Temperature 96.2 F L 08/05/16 09:33 Pulse Rate 82 08/05/16 09:33 Respiratory Rate 18 08/05/16 09:33 Blood Pressure 124/79 08/05/16 09:33 O2 Sat by Pulse Oximetry (%) Assessment: 08/05/16 10:52 WITHDRAWAL SX Plan: CONTINUE DETOX.
[2016-08-05] MEDS: chlordiazePOXIDE HCL 10 MG CAPSULE PO SCH ×2 (17:12→22:30)
[2016-08-05] MEDS: traZODone HCL 50 MG TABLET (FP) PO SCH (22:30)
[2016-08-05] MEDS: THIAMINE HCL 100 MG TABLET (FP) PO SCH (22:30)
[2016-08-06] MEDS: chlordiazePOXIDE HCL 10 MG CAPSULE PO SCH ×2 (06:15→10:32)
[2016-08-06] MEDS ORDERED: METHADONE HCL 10 MG TABLET (FOR DETOX USE ONLY) PO SCH (10:00)
[2016-08-06] MEDS: PRENATAL VITAMINS W/ FOLIC ACID TABLET (FP) PO SCH (10:31)
[2016-08-06] MEDS: NICOTINE 14 MG/24 HOURS TOPICAL PATCH TD SCH (10:31)
--- NOTE | 2016-08-06 13:39 | PN ---
[facility] Progress Note (SOAP) Subjective: Sweating,interrupted sleep,restless Objective: 08/06/16 13:38 Vital Signs - 8 hr 08/06/16 08/06/16 06:38 10:40 Temperature 95.9 F L 99.0 F Pulse Rate 81 83 Respiratory 16 18 Rate Blood Pressure 100/68 108/71 Laboratory Last Values WBC 2.2 K/mm3 (4.0-10.0) L D 08/03/16 06:00 RBC 4.61 M/mm3 (4.00-5.60) 08/03/16 06:00 Hgb 14.8 GM/dL (11.7-16.9) 08/03/16 06:00 Hct 44.0 % (35.4-49) 08/03/16 06:00 MCV 95.4 fl (80-96) 08/03/16 06:00 MCHC 33.6 g/dl (32.0-35.9) 08/03/16 06:00 RDW 13.5 % (11.9-15.9) 08/03/16 06:00 Plt Count 160 K/MM3 (134-434) 08/03/16 06:00 MPV 10.7 fl (7.5-11.1) 08/03/16 06:00 Sodium 142 mmol/L (136-145) 08/03/16 06:00 Potassium 4.4 mmol/L (3.5-5.1) 08/03/16 06:00 Chloride 105 mmol/L (98-107) 08/03/16 06:00 Carbon Dioxide 29 mmol/L (21-32) 08/03/16 06:00 Anion Gap 8 (8-16) 08/03/16 06:00 BUN 17 mg/dL (7-18) 08/03/16 06:00 Creatinine 1.2 mg/dL (0.7-1.3) 08/03/16 06:00 Creat Clearance w eGFR > 60 (>60) 08/03/16 06:00 Random Glucose 94 mg/dL (74-106) 08/03/16 06:00 Calcium 9.5 mg/dL (8.5-10.1) 08/03/16 06:00 Total Bilirubin 0.7 mg/dL (0.2-1.0) D 08/03/16 06:00 AST 15 U/L (15-37) 08/03/16 06:00 ALT 23 U/L (12-78) 08/03/16 06:00 Alkaline Phosphatase 104 U/L (45-117) 08/03/16 06:00 Total Protein 8.4 g/dl (6.4-8.2) H 08/03/16 06:00 Albumin 4.4 g/dl (3.4-5.0) 08/03/16 06:00 Urine Color Straw 08/02/16 14:00 Urine Appearance Clear 08/02/16 14:00 Urine pH 5.0 (5.0-8.0) 08/02/16 14:00 Ur Specific [place] 1.017 (1.001-1.035) 08/02/16 14:00 Urine Protein Negative (NEGATIVE) 08/02/16 14:00 Urine Glucose (UA) Negative (NEGATIVE) 08/02/16 14:00 Urine Ketones Negative (NEGATIVE) 08/02/16 14:00 Urine Blood Negative (NEGATIVE) 08/02/16 14:00 Urine Nitrite Negative (NEGATIVE) 08/02/16 14:00 Urine Bilirubin Negative (NEGATIVE) 08/02/16 14:00 Urine Urobilinogen Negative E.U./dl (0.2-1.0) 08/02/16 14:00 Ur Leukocyte Esterase Negative (NEGATIVE) 08/02/16 14:00 RPR Titer Nonreactive (NONREACTIVE) 08/03/16 06:00 labs noted Assessment: 08/06/16 13:38 Withdrawal sx. Plan: Continue detox
[2016-08-06] MEDS: traZODone HCL 50 MG TABLET (FP) PO SCH (22:20)
[2016-08-06] MEDS: diphenhydrAMINE HCL 50 MG CAPSULE PO PRN (22:20)
[2016-08-06] MEDS: THIAMINE HCL 100 MG TABLET (FP) PO SCH (22:20)
[2016-08-07] MEDS ORDERED: METHADONE HCL 5 MG TABLET (FOR DETOX USE ONLY) PO SCH (06:00)
[2016-08-07 06:50] VITALS: BP 114/79; PULSE 89; TEMP 96.8
--- NOTE | 2016-08-07 16:42 | DS ---
[facility] Detox Discharge Summary Admission Date: 08/02/16 Discharge Date: 08/07/16 - History Present History: Alcohol Dependence, Cannabis Dependence, Cocaine Dependence, Opioid Dependence Additional Comments: ADVISED PATIENT TO FOLLOW-UP WITH [facility] / REHAB MEDICAL PROVIDER FOR GENERAL MEDICAL ASSESSMENT AND FOR ABNORMAL ADMISSION LAB VALUES. Pertinent Past History: HIV, Hep C. - Physical Exam Results Vital Signs: Vital Signs Temperature 96.8 F L 08/07/16 06:50 Pulse Rate 89 08/07/16 06:50 Respiratory Rate 18 08/07/16 06:50 Blood Pressure 114/79 08/07/16 06:50 O2 Sat by Pulse Oximetry (%) Pertinent Admission Physical Exam Findings: WITHDRAWAL SYMPTOMS. Laboratory Last Values WBC 2.2 K/mm3 (4.0-10.0) L D 08/03/16 06:00 RBC 4.61 M/mm3 (4.00-5.60) 08/03/16 06:00 Hgb 14.8 GM/dL (11.7-16.9) 08/03/16 06:00 Hct 44.0 % (35.4-49) 08/03/16 06:00 MCV 95.4 fl (80-96) 08/03/16 06:00 MCHC 33.6 g/dl (32.0-35.9) 08/03/16 06:00 RDW 13.5 % (11.9-15.9) 08/03/16 06:00 Plt Count 160 K/MM3 (134-434) 08/03/16 06:00 MPV 10.7 fl (7.5-11.1) 08/03/16 06:00 Sodium 142 mmol/L (136-145) 08/03/16 06:00 Potassium 4.4 mmol/L (3.5-5.1) 08/03/16 06:00 Chloride 105 mmol/L (98-107) 08/03/16 06:00 Carbon Dioxide 29 mmol/L (21-32) 08/03/16 06:00 Anion Gap 8 (8-16) 08/03/16 06:00 BUN 17 mg/dL (7-18) 08/03/16 06:00 Creatinine 1.2 mg/dL (0.7-1.3) 08/03/16 06:00 Creat Clearance w eGFR > 60 (>60) 08/03/16 06:00 Random Glucose 94 mg/dL (74-106) 08/03/16 06:00 Calcium 9.5 mg/dL (8.5-10.1) 08/03/16 06:00 Total Bilirubin 0.7 mg/dL (0.2-1.0) D 08/03/16 06:00 AST 15 U/L (15-37) 08/03/16 06:00 ALT 23 U/L (12-78) 08/03/16 06:00 Alkaline Phosphatase 104 U/L (45-117) 08/03/16 06:00 Total Protein 8.4 g/dl (6.4-8.2) H 08/03/16 06:00 Albumin 4.4 g/dl (3.4-5.0) 08/03/16 06:00 Urine Color Straw 08/02/16 14:00 Urine Appearance Clear 08/02/16 14:00 Urine pH 5.0 (5.0-8.0) 08/02/16 14:00 Ur Specific [place] 1.017 (1.001-1.035) 08/02/16 14:00 Urine Protein Negative (NEGATIVE) 08/02/16 14:00 Urine Glucose (UA) Negative (NEGATIVE) 08/02/16 14:00 Urine Ketones Negative (NEGATIVE) 08/02/16 14:00 Urine Blood Negative (NEGATIVE) 08/02/16 14:00 Urine Nitrite Negative (NEGATIVE) 08/02/16 14:00 Urine Bilirubin Negative (NEGATIVE) 08/02/16 14:00 Urine Urobilinogen Negative E.U./dl (0.2-1.0) 08/02/16 14:00 Ur Leukocyte Esterase Negative (NEGATIVE) 08/02/16 14:00 RPR Titer Nonreactive (NONREACTIVE) 08/03/16 06:00 LABS NOTED. - Treatment Hospital Course: Detox Protocol Followed, Detoxed Safely, Responded well, Discharged Condition Good Patient has Accepted a Rehab Referral to: NO-PT. ELECTING TO GO HOME AT THIS TIME; AA/NA/12-STEP PROGRAMS RECOMMENDED - Medication Discharge Medications: Ambulatory Orders Emtricitab/Rilpiviri/Tenof Ala [Odefsey Tablet] 1 each PO DAILY 05/27/16 - Diagnosis (1) Alcohol dependence with uncomplicated withdrawal Status: Acute (2) Cannabis dependence, uncomplicated Status: Acute (3) Cocaine dependence Status: Acute Qualifiers: Substance use status: uncomplicated Qualified Code(s): F14.20 - Cocaine dependence, uncomplicated (4) Nicotine dependence Status: Chronic Qualifiers: Nicotine product type: cigarettes Substance use status: in withdrawal Qualified Code(s): F17.213 - Nicotine dependence, cigarettes, with withdrawal (5) Opioid dependence with withdrawal Status: Acute (6) Anxiety and depression Status: Chronic (7) HIV (human immunodeficiency virus infection) Status: Chronic (8) History of hepatitis C Status: Chronic (9) Low back pain Status: Chronic Qualifiers: Chronicity: chronic Back pain laterality: unspecified Sciatica presence: unspecified whether sciatica present Qualified Code(s): M54.5 - Low back pain (10) Weight loss Status: Chronic (11) Drug-induced mood disorder Status: Suspected - AMA Did Patient Leave Against Medical Advice: No
== END 2016-08-07 09:45 | disposition home or self-care (01) | DRG 773 ==
LOC: YASAS 09:13 → Y3N 12:49
PROVIDERS: ADMIT Internal Medicine; ATTEND Internal Medicine
PROC: HZ2ZZZZ Detoxification Services for Substance Abuse Treatment (ICD-10-PCS; principal; 2016-08-07)
DX: F11.23 Opioid dependence with withdrawal (principal); F10.230 Alcohol dependence with withdrawal, uncomplicated; F14.20 Cocaine dependence, uncomplicated; F12.20 Cannabis dependence, uncomplicated; F17.213 Nicotine dependence, cigarettes, with withdrawal; F19.24 Other psychoactive substance dependence with psychoactive substance-induced mood disorder; Z21 Asymptomatic human immunodeficiency virus [HIV] infection status; M54.5 Low back pain; G89.29 Other chronic pain; R63.4 Abnormal weight loss
CPT/HCPCS: 36415; 80053; 81003; 85027; 86593; 93005; 93010